=== PATIENT | male | born 1965 | race Two or more races ===

== ENCOUNTER 2020-12-18 12:04 | Emergency (ER) | payer OTHER ==
[2020-12-18 12:51] VITALS: BMI 47.0
[2020-12-18] MEDS ORDERED: CASIRIVIMAB/IMDEVIMAB 10 ML in SODIUM CHLORIDE 100 ML IVPB ONE (14:30)
[2020-12-18 15:16] VITALS: TEMP 99.9
[2020-12-18 16:01] VITALS: BP 101/51; PULSE 86
== END 2020-12-18 17:10 | disposition home or self-care (01) ==
LOC: JCOVINFU 12:04
DX: U07.1 COVID-19 (principal)
CPT/HCPCS: 99284-25; M0240; Q0240